=== PATIENT | female | born 1985 | race Caucasian/White ===

== ENCOUNTER 2016-04-30 18:24 | Emergency (ER) | payer BC ==
[2016-01-31 00:43] VITALS: BMI 22.8
[~2016-04-30 18:24] MED LIST: CEFPODOXIME PR200 MG; CEFPODOXIME PR200 MG PO; DOXYCYCLINE HY100 M2 PO; HYDROCODONE-APA1 TAB PO; IBUPROFEN600 MG PO; LAMICTAL200 MG PO; LATUDA40 MG PO; RELAFEN500 MG PO; ROBAXIN-750750 MG PO; ROBAXIN500 MG PO; SKELAXIN800 MG; SKELAXIN800 MG PO; TRI-SPRINTEC1 TAB PO; VITAMIN B-1000 MCG/M IM
[2016-04-30 20:04] LABS: APPEARANCE CLEAR (CLEAR); BILIRUBIN NEGATIVE (NEGATIVE); COLOR YELLOW (YELLOW); GLUCOSE NEGATIVE (NEGATIVE); KETONE NEGATIVE (NEGATIVE); LEUKOCYTE ESTERASE NEGATIVE (NEGATIVE); NITRITE NEGATIVE (NEGATIVE); PROTEIN NEGATIVE (NEGATIVE); SPECIFIC GRAVITY 1.015 (1.005-1.020); UROBILINOGEN NORMAL (NORMAL)
[2016-04-30 23:30] LABS: BASOPHILS 0.4 % (0.0-2.0); EOSINOPHILS 2.7 % (0-7); HEMATOCRIT 41.7 % (36.0-48.0); HEMOGLOBIN 13.9 g/dL (12-16); IMMATURE GRANULOCYTES 0.2 % (0-5); LYMPHOCYTES 26.7 % (15-50); MCH 28.7 pg (26.0-34.0); MCHC 33.3 g/dL (31.0-37.0); MEAN PLATELET VOLUME 8.8 fL (7.4-10.4); MONOCYTES 8.5 % (2-11); NEUTROPHILS 61.5 % (40-80); RBC 4.85 10x6/uL (4.00-5.40); RDW 12.3 % (11.5-14.5); WBC 10.2 10x3/uL (4.8-10.8)
[2016-04-30 23:39] LABS: PLATELET COUNT 358 10x3/uL (130-400)
[2016-04-30 23:41] LABS: HCG SERUM NEGATIVE (NEGATIVE)
[2016-04-30 23:47] LABS: ALBUMIN 4.2 g/dL (3.4-5.0); ALKALINE PHOSPHATASE 65 U/L (46-116); ALT (SGPT) 29 U/L (10-68); BILIRUBIN - TOTAL 0.56 mg/dL (0.2-1.3); CALC OSMOLALITY 270 mosm/kg (275-300); CALCIUM 9.9 mg/dL (8.5-10.1); CARBON DIOXIDE 28.3 mmol/L (21.0-32.0); CHLORIDE - SERUM 102 mmol/L (98-107); CREATININE - SERUM 0.7 mg/dL (0.6-1.3); GLUCOSE 77 mg/dL (74-106); POTASSIUM - SERUM 3.7 mmol/L (3.5-5.1); PROTEIN - SERUM 7.9 g/dL (6.4-8.2); SODIUM 137 mmol/L (136-145); UREA NITROGEN 7 mg/dL (7-18); eGFR NON AFRICAN AMERICAN > 90 mL/min (90-120)
== END 2016-05-01 01:23 | disposition home or self-care (01) ==
LOC: D.ER 18:24
PROVIDERS: Family Medicine; Physician Assistant
DX: R10.9 Unspecified abdominal pain (principal)

== ENCOUNTER → 2016-07-06 16:56 | Outpatient (CLI) | payer BC ==
[2016-01-31 00:43] VITALS: BMI 22.8
== END | disposition home or self-care (01) ==
LOC: D.CT 16:56
DX: R06.00 Dyspnea, unspecified (principal)

== ENCOUNTER → 2016-10-29 15:54 | Outpatient (CLI) | payer BC ==
[2016-01-31 00:43] VITALS: BMI 22.8
== END | disposition home or self-care (01) ==
LOC: D.US 15:54
DX: R10.9 Unspecified abdominal pain (principal)

== ENCOUNTER 2016-11-13 10:27 | Emergency (ER) | payer BC ==
[2016-01-31 00:43] VITALS: BMI 22.8
[2016-11-13 12:00] LABS: UDS - AMPHET POSITIVE QUAL (NEGATIVE); UDS - BARB NEGATIVE QUAL (NEGATIVE); UDS - BENZO NEGATIVE QUAL (NEGATIVE); UDS - COCAINE NEGATIVE QUAL (NEGATIVE); UDS - METH NEGATIVE QUAL (NEGATIVE); UDS - OPIATE NEGATIVE QUAL (NEGATIVE); UDS - PCP NEGATIVE QUAL (NEGATIVE); UDS - THC NEGATIVE QUAL (NEGATIVE)
[2016-11-13 12:14] LABS: APPEARANCE HAZY (CLEAR); BACTERIA MANY /hpf (NONE SEEN); BILIRUBIN NEGATIVE (NEGATIVE); COLOR YELLOW (YELLOW); GLUCOSE NEGATIVE (NEGATIVE); KETONE NEGATIVE (NEGATIVE); LEUKOCYTE ESTERASE 2+ (NEGATIVE); MUCUS <1+ /lpf (NONE SEEN); NITRITE NEGATIVE (NEGATIVE); PROTEIN NEGATIVE (NEGATIVE); RED CELLS - URINE 0-5 /hpf (0-5); SPECIFIC GRAVITY 1.015 (1.005-1.020); UROBILINOGEN NORMAL (NORMAL)
[2016-11-13 12:22] LABS: BASOPHILS 0.3 % (0-2); EOSINOPHILS 1.4 % (0-7); HEMATOCRIT 39.6 % (36.0-48.0); HEMOGLOBIN 13.2 g/dL (12-16); IMMATURE GRANULOCYTES 0.1 % (0-5); LYMPHOCYTES 21.4 % (15-50); MCH 28.5 pg (26.0-34.0); MCHC 33.3 g/dL (31.0-37.0); MCV 85.5 fL (80.0-100.0); MEAN PLATELET VOLUME 9.5 fL (7.4-10.4); MONOCYTES 7.4 % (2-11); NEUTROPHILS 69.4 % (40-80); RBC 4.63 10x6/uL (4.00-5.40); RDW 12.6 % (11.5-14.5); WBC 7.4 10x3/uL (4.8-10.8)
[2016-11-13 12:36] LABS: PLATELET COUNT 281 10x3/uL (130-400)
[2016-11-13 12:42] LABS: ALBUMIN 3.5 g/dL (3.4-5.0); ALKALINE PHOSPHATASE 71 U/L (46-116); ALT (SGPT) 26 U/L (10-68); BILIRUBIN - TOTAL 0.16 mg/dL (0.2-1.3); CALC OSMOLALITY 278 mosm/kg (275-300); CARBON DIOXIDE 24.5 mmol/L (21.0-32.0); CHLORIDE - SERUM 104 mmol/L (98-107); CREATININE - SERUM 0.6 mg/dL (0.6-1.3); GLUCOSE 98 mg/dL (74-106); PROTEIN - SERUM 6.9 g/dL (6.4-8.2); SODIUM 141 mmol/L (136-145); UREA NITROGEN 8 mg/dL (7-18); eGFR NON AFRICAN AMERICAN > 90 mL/min (90-120)
[2016-11-13 12:43] LABS: CREATINE KINASE 61 UL (21-215)
== END 2016-11-13 13:18 | disposition home or self-care (01) ==
LOC: D.ER 10:27
PROVIDERS: Nurse Practitioner Acute Care
DX: R56.9 Unspecified convulsions (principal); N39.0 Urinary tract infection, site not specified; F32.9 Major depressive disorder, single episode, unspecified; G47.00 Insomnia, unspecified

== ENCOUNTER 2017-02-18 21:40 | Emergency (ER) | payer BC ==
[2016-01-31 00:43] VITALS: BMI 22.8
== END 2017-02-19 00:55 | disposition home or self-care (01) ==
LOC: D.ER 21:40
DX: T78.40XA Allergy, unspecified, initial encounter (principal); X58.XXXA Exposure to other specified factors, initial encounter; R51 Headache

== ENCOUNTER 2017-02-25 11:06 | Emergency (ER) | payer BC ==
[2016-01-31 00:43] VITALS: BMI 22.8
== END 2017-02-25 12:50 | disposition home or self-care (01) ==
LOC: D.ER 11:06
DX: T78.3XXA Angioneurotic edema, initial encounter (principal); R51 Headache; F17.200 Nicotine dependence, unspecified, uncomplicated

== ENCOUNTER 2017-03-22 20:57 | Emergency (ER) | payer BC ==
[2016-01-31 00:43] VITALS: BMI 22.8
== END 2017-03-22 23:00 | disposition home or self-care (01) ==
LOC: D.ER 20:57
DX: T78.40XA Allergy, unspecified, initial encounter (principal); X58.XXXA Exposure to other specified factors, initial encounter; T78.3XXA Angioneurotic edema, initial encounter

== ENCOUNTER 2017-04-02 20:23 | Emergency (ER) | payer BC ==
[2016-01-31 00:43] VITALS: BMI 22.8
== END 2017-04-02 23:35 | disposition home or self-care (01) ==
LOC: D.ER 20:23
DX: T78.40XA Allergy, unspecified, initial encounter (principal)

== ENCOUNTER 2017-05-16 19:28 | Emergency (ER) | payer BC ==
[2016-01-31 00:43] VITALS: BMI 22.8
== END 2017-05-16 21:43 | disposition home or self-care (01) ==
LOC: D.ER 19:28
DX: T78.3XXA Angioneurotic edema, initial encounter (principal); T78.1XXA Other adverse food reactions, not elsewhere classified, initial encounter; X58.XXXA Exposure to other specified factors, initial encounter

== ENCOUNTER 2017-05-25 19:16 | Emergency (ER) | payer BC ==
[2016-01-31 00:43] VITALS: BMI 22.8
== END 2017-05-25 22:24 | disposition home or self-care (01) ==
LOC: D.ER 19:16
DX: J20.9 Acute bronchitis, unspecified (principal); J06.9 Acute upper respiratory infection, unspecified

== ENCOUNTER 2017-06-04 23:04 | Emergency (ER) | payer BC ==
[2016-01-31 00:43] VITALS: BMI 22.8
--- NOTE | ~2017-06-04 | HP ---
PATIENT: SYED DODGE MEDICAL RECORD: [id number] ACCOUNT: [id number] LOCATION:D.ER : 81 ADMISSION DATE: 06/04/17 HISTORY AND PHYSICAL EXAMINATION HISTORY OF PRESENT ILLNESS: She is a 32-year-old female who presented to the office today after ER followup. She had been in the ER the previous evening complaining of severe abdominal pain. She also had complained of abdominal pain, back pain, and burning with urination. We had diagnosed her with a UTI, E. Coli, and Staph epidermidis a week ago. She had been on antibiotics and actually had been feeling better up until yesterday when she states she started to have a fever and worsening pain. She also has a history of ovarian cyst. In the ER last night, the CT scan done was unremarkable except for a small amount of fluid in the right adnexa. Normal white count, normal CMP, UA had just a trace of blood. She, however, states the pain is 10/10, getting worse, complaining of headache. She states she has been unable to walk due to being so lightheaded and weak, was brought into the office by her today in a wheelchair. She states the temperature last night was 100.5. She is nauseated. HOME MEDICATIONS: Include Lamictal 200 mg daily, Latuda 40 mg daily, pantoprazole 20 mg b.i.d., ranitidine 150 mg b.i.d., Bactrim DS b.i.d., trazodone 50 mg q.h.s., and oral contraceptive. ALLERGIES: She has allergies to LEVAQUIN, which caused vomiting and REGLAN, which caused vomiting and convulsions. PAST MEDICAL HISTORY: She does carry with her past medical history of bipolar disorder. She had been diagnosed with flu type A 3 weeks ago, did undergo treatment for that. She has a history of some urticaria with angioedema in the past. FAMILY HISTORY: Noncontributory. SOCIAL HISTORY: She does not smoke, denies alcohol or drug use. She is . REVIEW OF SYSTEMS: CONSTITUTIONAL: Complained of low-grade temperature last night. She denies any visual changes or auditory changes. Does complain of headache. CARDIOVASCULAR: Denies any chest pains or palpitations. PULMONARY: Denies any cough or hemoptysis. GASTROINTESTINAL: She does complain of the abdominal pain, mostly right lower quadrant and right flank area. GENITOURINARY: She complains of some blood with wiping after urination and some burning with urination. NEUROLOGIC: She complains of headache, being lightheaded, dizzy. PHYSICAL EXAMINATION: VITAL SIGNS: Her pulse was 80, respiration of 18, temperature 98.6 here, blood pressure 120/80. HEENT: PERRLA, EOMI. Pharynx clear. NECK: Supple, no JVD. HEART: Had S1 and S2. No murmurs or rubs. LUNGS: Clear with no rhonchi, rales or wheezing. ABDOMEN: Soft. It was tender in the right lower quadrant, suprapubic area to HISTORY AND PHYSICAL [id number] DODGE,DESIRE J palpation. No rebound or guarding. EXTREMITIES: She had some right flank tenderness. No skin rash noted. NEUROLOGICALLY: She was weak and very anxious appearing. LABORATORY DATA: Urinalysis had trace of blood, no bacteria seen. ASSESSMENT AND PLAN: Abdominal pain with fever, recent UTI, nausea, lightheadedness, low back pain, flank pain, and right lower quadrant pain. 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 While she was here in the hospital, she did have an outpatient appointment with them set up for next week. We will panculture her again, ask ID to see in regards to the fever prior to starting any new antibiotics. Pain medicine, antiemetic medicine, IV fluids, and continued treatment based on further evaluation. TRANSINT:[id number] Voice Confirmation ID: [id number] DOCUMENT ID: [id number] RAÚL WELLS DO at 0645 CC: [id number] DICTATION DATE: 06/05/17 1227 TELECOMMUNICATIONS OPERATOR: 06/05/17 1246 DEP ER 06/05/17 [id number] [place] [address]
[2017-06-04 23:51] LABS: APPEARANCE CLEAR (CLEAR); BILIRUBIN NEGATIVE (NEGATIVE); COLOR STRAW (YELLOW); GLUCOSE NEGATIVE (NEGATIVE); KETONE NEGATIVE (NEGATIVE); NITRITE NEGATIVE (NEGATIVE); PROTEIN NEGATIVE (NEGATIVE); SPECIFIC GRAVITY 1.005 (1.005-1.020); UROBILINOGEN NORMAL (NORMAL)
[2017-06-04 23:52] LABS: BACTERIA FEW /hpf (NONE SEEN); EPITHELIAL CELLS 0-5 /hpf (0-5); RED CELLS - URINE 0-5 /hpf (0-5); WHITE CELLS - URINE 0-5 /hpf (0-5)
[2017-06-05 01:47] LABS: BASOPHILS 0.1 % (0-2); EOSINOPHILS 1.8 % (0-7); HEMATOCRIT 39.3 % (36.0-48.0); HEMOGLOBIN 12.8 g/dL (12-16); IMMATURE GRANULOCYTES 0.1 % (0-5); LYMPHOCYTES 29.1 % (15-50); MCH 28.8 pg (26.0-34.0); MCHC 32.6 g/dL (31.0-37.0); MCV 88.5 fL (80.0-100.0); MEAN PLATELET VOLUME 8.5 fL (7.4-10.4); MONOCYTES 8.5 % (2-11); NEUTROPHILS 60.4 % (40-80); PLATELET COUNT 292 10x3/uL (130-400); RBC 4.44 10x6/uL (4.00-5.40); RDW 12.5 % (11.5-14.5)
[2017-06-05 01:53] LABS: HCG URINE NEGATIVE (NEGATIVE)
[2017-06-05 02:00] LABS: ALBUMIN 3.7 g/dL (3.4-5.0); ALKALINE PHOSPHATASE 63 U/L (46-116); ALT (SGPT) 41 U/L (10-68); CALC OSMOLALITY 271 mosm/kg (275-300); CALCIUM 9.2 mg/dL (8.5-10.1); CHLORIDE - SERUM 101 mmol/L (98-107); CREATININE - SERUM 0.6 mg/dL (0.6-1.3); GLUCOSE 90 mg/dL (74-106); LIPASE 108 U/L (73-393); POTASSIUM - SERUM 3.9 mmol/L (3.5-5.1); PROTEIN - SERUM 6.8 g/dL (6.4-8.2); SODIUM 137 mmol/L (136-145); UREA NITROGEN 7 mg/dL (7-18); eGFR NON AFRICAN AMERICAN > 90 mL/min (90-120)
[2017-06-05] MEDS ORDERED: ZANTAC150 MG PO (19:20)
[2017-06-05] MEDS ORDERED: PROTONIX40 MG PO (19:21)
[2017-06-05] MEDS ORDERED: TRAZODONE HCL50 MG PO (19:22)
== END 2017-06-05 04:05 | disposition home or self-care (01) ==
LOC: D.ER 23:04
PROVIDERS: Emergency Medicine
DX: R10.9 Unspecified abdominal pain (principal)

== ENCOUNTER 2017-06-05 12:36 | Observation (INO) | payer BC ==
[~2017-06-05] VITALS: Ht 162.6 cm; Wt 73.9 kg
[2017-06-05 13:30] VITALS: BP 130/84
[2017-06-05 15:31] LABS: BASOPHILS 0.2 % (0-2); HEMATOCRIT 39.3 % (36.0-48.0); HEMOGLOBIN 12.8 g/dL (12-16); IMMATURE GRANULOCYTES 0.2 % (0-5); LYMPHOCYTES 28.5 % (15-50); MCH 28.6 pg (26.0-34.0); MCHC 32.6 g/dL (31.0-37.0); MCV 87.7 fL (80.0-100.0); MEAN PLATELET VOLUME 8.8 fL (7.4-10.4); MONOCYTES 8.7 % (2-11); NEUTROPHILS 60.4 % (40-80); PLATELET COUNT 264 10x3/uL (130-400); RBC 4.48 10x6/uL (4.00-5.40); RDW 12.6 % (11.5-14.5)
[2017-06-05 15:41] LABS: ALBUMIN 3.7 g/dL (3.4-5.0); ALKALINE PHOSPHATASE 58 U/L (46-116); ALT (SGPT) 49 U/L (10-68); AMYLASE - SERUM 49 U/L (25-115); BILIRUBIN - TOTAL 0.26 mg/dL (0.2-1.3); CALC OSMOLALITY 274 mosm/kg (275-300); CARBON DIOXIDE 29.4 mmol/L (21.0-32.0); CHLORIDE - SERUM 103 mmol/L (98-107); CREATININE - SERUM 0.5 mg/dL (0.6-1.3); GLUCOSE 84 mg/dL (74-106); LIPASE 97 U/L (73-393); POTASSIUM - SERUM 3.9 mmol/L (3.5-5.1); PROTEIN - SERUM 6.5 g/dL (6.4-8.2); SODIUM 139 mmol/L (136-145); UREA NITROGEN 6 mg/dL (7-18); eGFR NON AFRICAN AMERICAN > 90 mL/min (90-120)
[2017-06-05 15:49] VITALS: BP 137/83
[2017-06-05 18:19] VITALS: BMI 28.0
[2017-06-05 19:15] LABS: APPEARANCE CLEAR (CLEAR); BILIRUBIN NEGATIVE (NEGATIVE); COLOR YELLOW (YELLOW); GLUCOSE NEGATIVE (NEGATIVE); KETONE NEGATIVE (NEGATIVE); NITRITE NEGATIVE (NEGATIVE); PROTEIN NEGATIVE (NEGATIVE); UROBILINOGEN NORMAL (NORMAL)
[2017-06-05] MEDS ORDERED: ZANTAC150 MG PO (19:20)
[2017-06-05] MEDS ORDERED: PROTONIX40 MG PO (19:21)
[2017-06-05] MEDS ORDERED: TRAZODONE HCL50 MG PO (19:22)
[2017-06-05 20:00] VITALS: BP 120/74
[2017-06-06 04:00] VITALS: BP 122/85
[2017-06-06 04:49] LABS: BASOPHILS 0.2 % (0-2); EOSINOPHILS 1.8 % (0-7); HEMATOCRIT 37.6 % (36.0-48.0); IMMATURE GRANULOCYTES 0.2 % (0-5); LYMPHOCYTES 31.7 % (15-50); MCH 28.3 pg (26.0-34.0); MCHC 31.9 g/dL (31.0-37.0); MCV 88.7 fL (80.0-100.0); MONOCYTES 11.8 % (2-11); NEUTROPHILS 54.3 % (40-80); PLATELET COUNT 269 10x3/uL (130-400); RBC 4.24 10x6/uL (4.00-5.40); RDW 12.7 % (11.5-14.5); WBC 5.4 10x3/uL (4.8-10.8)
[2017-06-06 05:18] LABS: ALBUMIN 3.1 g/dL (3.4-5.0); ALKALINE PHOSPHATASE 53 U/L (46-116); ALT (SGPT) 45 U/L (10-68); BILIRUBIN - TOTAL 0.29 mg/dL (0.2-1.3); CALC OSMOLALITY 275 mosm/kg (275-300); CALCIUM 8.7 mg/dL (8.5-10.1); CARBON DIOXIDE 27.4 mmol/L (21.0-32.0); CHLORIDE - SERUM 104 mmol/L (98-107); CREATININE - SERUM 0.6 mg/dL (0.6-1.3); GLUCOSE 91 mg/dL (74-106); POTASSIUM - SERUM 4.2 mmol/L (3.5-5.1); PROTEIN - SERUM 5.9 g/dL (6.4-8.2); SODIUM 139 mmol/L (136-145); UREA NITROGEN 7 mg/dL (7-18); eGFR NON AFRICAN AMERICAN > 90 mL/min (90-120)
[2017-06-06 08:12] VITALS: BP 113/64
[2017-06-06 10:49] VITALS: Ht 162.6 cm; Wt 73.9 kg
[2017-06-06 12:24] VITALS: BP 132/78
[2017-06-06 15:57] VITALS: BP 118/63
[2017-06-06 20:00] VITALS: BP 118/76
[2017-06-07] VITALS: BP 121/81
[2017-06-07 03:08] LABS: BASOPHILS 0.3 % (0-2); EOSINOPHILS 1.9 % (0-7); HEMATOCRIT 36.2 % (36.0-48.0); HEMOGLOBIN 11.7 g/dL (12-16); IMMATURE GRANULOCYTES 0.2 % (0-5); LYMPHOCYTES 28.8 % (15-50); MCH 28.4 pg (26.0-34.0); MCHC 32.3 g/dL (31.0-37.0); MCV 87.9 fL (80.0-100.0); MEAN PLATELET VOLUME 8.7 fL (7.4-10.4); MONOCYTES 9.2 % (2-11); NEUTROPHILS 59.6 % (40-80); PLATELET COUNT 259 10x3/uL (130-400); RBC 4.12 10x6/uL (4.00-5.40); RDW 12.3 % (11.5-14.5); WBC 6.4 10x3/uL (4.8-10.8)
[2017-06-07 03:36] LABS: ALBUMIN 3.1 g/dL (3.4-5.0); ALKALINE PHOSPHATASE 71 U/L (46-116); ALT (SGPT) 44 U/L (10-68); BILIRUBIN - TOTAL 0.14 mg/dL (0.2-1.3); CALC OSMOLALITY 277 mosm/kg (275-300); CALCIUM 8.4 mg/dL (8.5-10.1); CHLORIDE - SERUM 105 mmol/L (98-107); CREATININE - SERUM 0.6 mg/dL (0.6-1.3); GLUCOSE 111 mg/dL (74-106); POTASSIUM - SERUM 3.9 mmol/L (3.5-5.1); PROTEIN - SERUM 6.1 g/dL (6.4-8.2); SODIUM 140 mmol/L (136-145); UREA NITROGEN 6 mg/dL (7-18); eGFR NON AFRICAN AMERICAN > 90 mL/min (90-120)
[2017-06-07 04:00] VITALS: BP 132/79
[2017-06-07] MEDS ORDERED: NYSTATIN ORAL SU5 ML PO (06:46)
[2017-06-07 09:33] VITALS: BP 120/72
== END 2017-06-07 10:16 | disposition home or self-care (01) ==
LOC: D.MS 12:36 → D.SDCHOLD 12:36 → OBSVTIME 12:38 → D.MS 13:14
PROVIDERS: Family Medicine; Student in an Organized Health Care Education/Training Program
DX: R10.9 Unspecified abdominal pain (principal); R50.9 Fever, unspecified; B37.9 Candidiasis, unspecified; F45.41 Pain disorder exclusively related to psychological factors; F31.81 Bipolar II disorder

== ENCOUNTER 2017-08-30 12:31 | Emergency (ER) | payer BC ==
[2017-06-06 10:49] VITALS: BMI 27.9
[~2017-08-30 12:31] MED LIST changes: +NYSTATIN ORAL SU5 ML PO; +PROTONIX40 MG PO; +TRAZODONE HCL50 MG PO; +ZANTAC150 MG PO
[2017-08-30 13:24] LABS: APPEARANCE CLEAR (CLEAR); BILIRUBIN NEGATIVE (NEGATIVE); COLOR YELLOW (YELLOW); GLUCOSE NEGATIVE (NEGATIVE); KETONE NEGATIVE (NEGATIVE); NITRITE NEGATIVE (NEGATIVE); PROTEIN NEGATIVE (NEGATIVE); UROBILINOGEN NORMAL (NORMAL)
[2017-08-30 14:00] LABS: BASOPHILS 0.2 % (0-2); EOSINOPHILS 0.9 % (0-7); HEMATOCRIT 36.8 % (36.0-48.0); HEMOGLOBIN 12.4 g/dL (12-16); IMMATURE GRANULOCYTES 0.2 % (0-5); LYMPHOCYTES 28.7 % (15-50); MCH 28.6 pg (26.0-34.0); MCHC 33.7 g/dL (31.0-37.0); MCV 84.8 fL (80.0-100.0); MONOCYTES 8.7 % (2-11); NEUTROPHILS 61.3 % (40-80); PLATELET COUNT 287 10x3/uL (130-400); RBC 4.34 10x6/uL (4.00-5.40); RDW 11.8 % (11.5-14.5); WBC 5.8 10x3/uL (4.8-10.8)
== END 2017-08-30 15:30 | disposition home or self-care (01) ==
LOC: D.ER 12:31
PROVIDERS: Emergency Medicine
DX: M54.5 Low back pain (principal)

== ENCOUNTER 2017-09-05 11:04 | Day surgery (SDC) | payer BC ==
[~2017-09-05] VITALS: Ht 162.6 cm; Wt 71.4 kg
--- NOTE | ~2017-09-05 | OP ---
PATIENT NAME: SYED DODGE MEDICAL RECORD: [id number] :81 LOCATION:[facility] ADMISSION DATE: SURGEON: BRENDON WALSH MD DATE OF OPERATION: 09/05/2017 PREOPERATIVE DIAGNOSIS: Pelvic pain. POSTOPERATIVE DIAGNOSES: 1. Pelvic pain. 2. Endometriosis. PROCEDURES: 1. Diagnostic laparoscopy. 2. Fulguration of endometriosis. SURGEON: Brendon Walsh MD ANESTHESIOLOGIST: Vamshi Orozco MD ANESTHESIA: General anesthetic with endotracheal intubation. FINDINGS: Uterus and tubes were unremarkable. Active endometriosis was noted on the bladder serosa as well as an active lesion on the left ovary. What was visualized of the abdominal anatomy and the right ovary are all unremarkable. SPECIMENS: None. SPECIMEN DISPOSITION: Nonapplicable. ESTIMATED BLOOD LOSS: Less than or equal to 50 cc. FLUIDS: 800 cc lactated Ringer's. URINE OUTPUT: Quantity sufficient void prior to the procedure. COMPLICATIONS: None. DRAINS: None. INDICATIONS: The patient is a 32-year-old female who presented today to clinic for preoperative evaluation for planned procedure tomorrow. The patient was in intense lower pelvic and abdominal pain. The patient was admitted for subacute pelvic pain and immediately proceeded to diagnostic laparoscopy. DESCRIPTION OF PROCEDURE: After informed consent was assured, the patient was taken to the operating room where anesthetic was obtained. The patient was prepped and draped in the usual sterile fashion. An incision was made at the umbilicus to accommodate a 5-mm trocar, which was inserted without difficulty and pneumoperitoneum developed. Accessory ports were placed 2 fingerbreadths above the symphysis. Through this port, a blunt probe was used to sweep the bowel free of the pelvis and with the patient in steep Trendelenburg position, the cul-de-sac, uterus, tubes and ovaries are visualized. The above findings were encountered. A monopolar bovied device is now inserted and the endometriosis of the left ovary was fulgurated. Assessment of the pelvis now being complete, the accessory trocars were removed under direct visualization OPERATIVE REPORT [id number] SYED DODGE and the pneumoperitoneum released. Primary trocar was now removed and the skin sites closed with a subcuticular stitch. Dermabond was applied. Sponge, lap, and needle counts correct times 2. The patient was taken to the recovery area in stable condition. TRANSINT:[id number] Voice Confirmation ID: [id number] DOCUMENT ID: [id number] BRENDON WALSH MD at 1326 CC: [id number] DICTATION DATE: 09/05/17 1352 WORKDAY SENIOR ASSOCIATE: 09/05/17 1753 [facility] 09/05/17 [facility] [address] [id number]
[2017-09-05 11:54] VITALS: BP 140/80; Ht 162.6 cm; Wt 71.4 kg
[2017-09-05 12:07] LABS: BASOPHILS 0.1 % (0-2); EOSINOPHILS 0.7 % (0-7); HEMATOCRIT 35.9 % (36.0-48.0); HEMOGLOBIN 12.1 g/dL (12-16); IMMATURE GRANULOCYTES 0.1 % (0-5); LYMPHOCYTES 21.8 % (15-50); MCH 28.3 pg (26.0-34.0); MCHC 33.7 g/dL (31.0-37.0); MCV 83.9 fL (80.0-100.0); MEAN PLATELET VOLUME 9.2 fL (7.4-10.4); MONOCYTES 4.8 % (2-11); NEUTROPHILS 72.5 % (40-80); PLATELET COUNT 266 10x3/uL (130-400); RBC 4.28 10x6/uL (4.00-5.40); RDW 12.2 % (11.5-14.5); WBC 7.6 10x3/uL (4.8-10.8)
[2017-09-05 13:21] LABS: HCG SERUM NEGATIVE (NEGATIVE)
[2017-09-05 14:38] VITALS: BP 124/71
[2017-09-05] MEDS ORDERED: OXYCONTIN10 MG PO (15:07)
[2017-09-05] MEDS ORDERED: MOBIC7.5 MG PO (15:09)
[2017-09-05] MEDS ORDERED: ACETAMINOPHEN500 M1 PO (15:10)
== END 2017-09-05 16:19 | disposition home or self-care (01) ==
LOC: D.LDO 11:04 → D.PAN 11:04 → D.LDO 16:19 → D.PAN 09-06 08:00 → D.OPS 09-06 12:30
PROVIDERS: Anesthesiology; Obstetrics & Gynecology
DX: N80.9 Endometriosis, unspecified (principal); R10.2 Pelvic and perineal pain; K21.9 Gastro-esophageal reflux disease without esophagitis; N39.0 Urinary tract infection, site not specified; Z01.812 Encounter for preprocedural laboratory examination

== ENCOUNTER 2017-10-02 15:38 | Emergency (ER) | payer BC ==
[~2017-10-02] VITALS: Ht 162.6 cm; Wt 71.2 kg
[~2017-10-02 15:38] MED LIST changes: +ACETAMINOPHEN500 M1 PO; +MOBIC7.5 MG PO; +OXYCONTIN10 MG PO
[2017-10-02 16:17] VITALS: Ht 162.6 cm; Wt 71.2 kg
[2017-10-02] MEDS ORDERED: TYLENOL W/CODEI1 TAB PO (17:28)
[2017-10-02] MEDS ORDERED: BACITRACIN15 GM TP (17:28)
[2017-10-02 18:00] VITALS: BP 134/84
[2017-10-16] MEDS ORDERED: NORCO 7.5/325 T1 TA1 PO (16:17)
[2017-10-16] MEDS ORDERED: PERCOCET 5-3251 TAB PO (16:18)
[2017-10-17] MEDS ORDERED: DOLOPHINE HCL5 MG PO (19:03)
== END 2017-10-02 18:00 | disposition home or self-care (01) ==
LOC: D.ER 15:38
DX: S61.211A Laceration without foreign body of left index finger without damage to nail, initial encounter (principal); W26.0XXA Contact with knife, initial encounter; Y93.89 Activity, other specified; Y92.019 Unspecified place in single-family (private) house as the place of occurrence of the external cause

== ENCOUNTER 2017-12-03 18:04 | Emergency (ER) | payer BC ==
[~2017-12-03] VITALS: Ht 154.9 cm; Wt 70.5 kg
[~2017-12-03 18:04] MED LIST changes: +BACITRACIN15 GM TP; +DOLOPHINE HCL5 MG PO; +NORCO 7.5/325 T1 TA1 PO; +PERCOCET 5-3251 TAB PO; +TYLENOL W/CODEI1 TAB PO
[2017-12-03 18:15] VITALS: Ht 154.9 cm; Wt 70.5 kg
[2017-12-03] MEDS ORDERED: LUPRON IM (18:18)
[2017-12-03] MEDS ORDERED: [UNRECOGNIZED DRUG - REMARK] (18:18)
[2017-12-03 18:50] LABS: APPEARANCE CLEAR (CLEAR); COLOR YELLOW (YELLOW); GLUCOSE NEGATIVE (NEGATIVE); KETONE NEGATIVE (NEGATIVE); NITRITE NEGATIVE (NEGATIVE); PROTEIN NEGATIVE (NEGATIVE); SPECIFIC GRAVITY 1.015 (1.005-1.020); UROBILINOGEN NORMAL (NORMAL)
[2017-12-03 18:51] LABS: BACTERIA MANY /hpf (NONE SEEN); BILIRUBIN NEGATIVE (NEGATIVE); EPITHELIAL CELLS 0-5 /hpf (0-5); RED CELLS - URINE OCC /hpf (0-5); WHITE CELLS - URINE 0-5 /hpf (0-5)
[2017-12-03 19:04] LABS: BASOPHILS 0.2 % (0-2); EOSINOPHILS 2.5 % (0-7); HEMATOCRIT 38.3 % (36.0-48.0); HEMOGLOBIN 12.9 g/dL (12-16); IMMATURE GRANULOCYTES 0.2 % (0-5); MCH 28.3 pg (26.0-34.0); MCHC 33.7 g/dL (31.0-37.0); MEAN PLATELET VOLUME 9.2 fL (7.4-10.4); MONOCYTES 8.2 % (2-11); NEUTROPHILS 65.9 % (40-80); PLATELET COUNT 295 10x3/uL (130-400); RBC 4.56 10x6/uL (4.00-5.40); RDW 12.6 % (11.5-14.5); WBC 8.5 10x3/uL (4.8-10.8)
[2017-12-03 19:24] LABS: ALBUMIN 3.8 g/dL (3.4-5.0); ALKALINE PHOSPHATASE 102 U/L (46-116); ALT (SGPT) 22 U/L (10-68); CALC OSMOLALITY 275 mosm/kg (275-300); CALCIUM 9.1 mg/dL (8.5-10.1); CARBON DIOXIDE 29.3 mmol/L (21.0-32.0); CHLORIDE - SERUM 103 mmol/L (98-107); CREATININE - SERUM 0.7 mg/dL (0.6-1.3); GLUCOSE 115 mg/dL (74-106); POTASSIUM - SERUM 3.5 mmol/L (3.5-5.1); PROTEIN - SERUM 7.4 g/dL (6.4-8.2); SODIUM 138 mmol/L (136-145); UREA NITROGEN 10 mg/dL (7-18); eGFR NON AFRICAN AMERICAN > 90 mL/min (90-120)
[2017-12-03 19:27] LABS: HCG URINE NEGATIVE (NEGATIVE)
[2017-12-03 19:29] LABS: AMYLASE - SERUM 57 U/L (25-115); LIPASE 183 U/L (73-393)
[2017-12-03 19:43] LABS: TROPONIN-I < 0.017 ng/mL (0.000-0.060)
[2017-12-03 23:57] VITALS: BP 117/84
== END 2017-12-03 23:57 | disposition home or self-care (01) ==
LOC: D.ER 18:04
PROVIDERS: Family Medicine
DX: M54.16 Radiculopathy, lumbar region (principal); N83.209 Unspecified ovarian cyst, unspecified side; R10.2 Pelvic and perineal pain; Z79.818 Long term (current) use of other agents affecting estrogen receptors and estrogen levels; N80.9 Endometriosis, unspecified

== ENCOUNTER 2018-05-27 16:01 | Emergency (ER) | payer BC ==
[~2018-05-27] VITALS: Ht 154.9 cm; Wt 77.7 kg
[~2018-05-27 16:01] MED LIST changes: +LUPRON IM; +[UNRECOGNIZED DRUG - REMARK]
[2018-05-27 16:23] VITALS: Ht 154.9 cm; Wt 77.7 kg
[2018-05-27 17:26] LABS: BASOPHILS 0.1 % (0-2); EOSINOPHILS 1.4 % (0-7); HEMATOCRIT 36.6 % (36.0-48.0); HEMOGLOBIN 12.2 g/dL (12-16); IMMATURE GRANULOCYTES 0.1 % (0-5); LYMPHOCYTES 23.8 % (15-50); MCH 27.9 pg (26.0-34.0); MCHC 33.3 g/dL (31.0-37.0); MCV 83.6 fL (80.0-100.0); MEAN PLATELET VOLUME 8.8 fL (7.4-10.4); MONOCYTES 8.3 % (2-11); NEUTROPHILS 66.3 % (40-80); PLATELET COUNT 250 10x3/uL (130-400); RBC 4.38 10x6/uL (4.00-5.40); RDW 12.4 % (11.5-14.5); WBC 9.2 10x3/uL (4.8-10.8)
[2018-05-27 17:40] LABS: ALBUMIN 3.8 g/dL (3.4-5.0); ALKALINE PHOSPHATASE 78 U/L (46-116); ALT (SGPT) 37 U/L (10-68); BILIRUBIN - TOTAL 0.21 mg/dL (0.2-1.3); CALC OSMOLALITY 272 mosm/kg (275-300); CALCIUM 9.1 mg/dL (8.5-10.1); CARBON DIOXIDE 26.8 mmol/L (21.0-32.0); CHLORIDE - SERUM 99 mmol/L (98-107); CREATININE - SERUM 0.9 mg/dL (0.6-1.3); GLUCOSE 85 mg/dL (74-106); POTASSIUM - SERUM 3.8 mmol/L (3.5-5.1); PROTEIN - SERUM 7.4 g/dL (6.4-8.2); SODIUM 137 mmol/L (136-145); UREA NITROGEN 13 mg/dL (7-18); eGFR NON AFRICAN AMERICAN 75 mL/min (90-120)
[2018-05-27 18:02] LABS: APPEARANCE CLEAR (CLEAR); BILIRUBIN NEGATIVE (NEGATIVE); COLOR YELLOW (YELLOW); GLUCOSE NEGATIVE (NEGATIVE); KETONE NEGATIVE (NEGATIVE); NITRITE NEGATIVE (NEGATIVE); PROTEIN NEGATIVE (NEGATIVE); UROBILINOGEN NORMAL (NORMAL)
[2018-05-27 18:03] LABS: BACTERIA FEW /hpf (NONE SEEN); RED CELLS - URINE OCC /hpf (0-5); WHITE CELLS - URINE OCC /hpf (0-5)
[2018-05-27] MEDS ORDERED: TORADOL10 MG PO (18:44)
[2018-05-27] MEDS ORDERED: ZOFRAN ODT4 MG/UDTAB PO (18:44)
[2018-05-27 21:12] VITALS: BP 122/79
== END 2018-05-27 21:12 | disposition home or self-care (01) ==
LOC: D.ER 16:01
PROVIDERS: Emergency Medicine
DX: R10.9 Unspecified abdominal pain (principal); Z87.440 Personal history of urinary (tract) infections

== ENCOUNTER 2018-06-25 19:35 | Emergency (ER) | payer BC ==
[~2018-06-25] VITALS: Ht 154.9 cm; Wt 81.8 kg
[~2018-06-25 19:35] MED LIST changes: +TORADOL10 MG PO; +ZOFRAN ODT4 MG/UDTAB PO
[2018-06-25 19:39] VITALS: Ht 154.9 cm; Wt 81.8 kg
[2018-06-25] MEDS ORDERED: HYDROCODON-ACE1 EA10 PO (19:42)
[2018-06-25] MEDS ORDERED: BENADRYL50 MG PO (21:02)
[2018-06-25] MEDS ORDERED: MACROBID100 MG PO (21:28)
[2018-06-25] MEDS ORDERED: EPIPEN 2-P0.3 MG/0.3 IM (21:28)
[2018-06-25 21:56] VITALS: BP 169/94
== END 2018-06-25 22:02 | disposition home or self-care (01) ==
LOC: D.ER 19:35
DX: T37.0X5A Adverse effect of sulfonamides, initial encounter (principal); Y92.019 Unspecified place in single-family (private) house as the place of occurrence of the external cause

== ENCOUNTER 2019-07-19 14:20 | Emergency (ER) | payer OTHER ==
[~2019-07-19] VITALS: Ht 154.9 cm; Wt 86.4 kg
[~2019-07-19 14:20] MED LIST changes: +BENADRYL50 MG PO; +EPIPEN 2-P0.3 MG/0.3 IM; +HYDROCODON-ACE1 EA10 PO; +MACROBID100 MG PO
[2019-07-19 15:37] VITALS: Ht 154.9 cm; Wt 86.4 kg
[2019-07-19 16:24] LABS: BILIRUBIN NEGATIVE (NEGATIVE); GLUCOSE NEGATIVE (NEGATIVE); KETONE NEGATIVE (NEGATIVE); NITRITE NEGATIVE (NEGATIVE); UROBILINOGEN NORMAL (NORMAL)
[2019-07-19 19:40] LABS: BASOPHILS 0.2 % (0-2); HEMOGLOBIN 13.3 g/dL (12-16); IMMATURE GRANULOCYTES 0.1 % (0-5); LYMPHOCYTES 21.8 % (15-50); MCH 28.5 pg (26.0-34.0); MCHC 32.4 g/dL (31.0-37.0); MEAN PLATELET VOLUME 8.6 fL (7.4-10.4); MONOCYTES 6.9 % (2-11); PLATELET COUNT 253 10x3/uL (130-400); RBC 4.66 10x6/uL (4.00-5.40); RDW 12.9 % (11.5-14.5); WBC 9.4 10x3/uL (4.8-10.8)
[2019-07-19 20:12] LABS: ALKALINE PHOSPHATASE 93 U/L (30-120); ALT (SGPT) 69 U/L (10-68); BILIRUBIN - TOTAL 0.24 mg/dL (0.2-1.3); CALCIUM 9.1 mg/dL (8.5-10.1); CARBON DIOXIDE 27.5 mmol/L (21.0-32.0); CKMB 0.1 U/L (0.0-3.6); CREATINE KINASE 51 UL (21-215); CREATININE - SERUM 0.7 mg/dL (0.6-1.3); FERRITIN 30 ng/mL (3-244); GLUCOSE 93 mg/dL (74-106); PROTEIN - SERUM 6.6 g/dL (6.4-8.2); UREA NITROGEN 6 mg/dL (7-18); eGFR NON AFRICAN AMERICAN > 90 mL/min (90-120)
[2019-07-19 20:28] LABS: ALBUMIN 3.8 g/dL (3.4-5.0); CALC OSMOLALITY 282 mosm/kg (275-300); CHLORIDE - SERUM 106 mmol/L (98-107); POTASSIUM - SERUM 4.3 mmol/L (3.5-5.1); SODIUM 143 mmol/L (136-145)
[2019-07-19 20:35] LABS: TROPONIN-I < 0.017 ng/mL (0.000-0.060)
[2019-07-19] MEDS ORDERED: ZOFRAN4 MG PO (22:41)
[2019-07-19 23:56] VITALS: BP 141/101
== END 2019-07-19 23:56 | disposition home or self-care (01) ==
LOC: D.ER 14:20
PROVIDERS: Family Medicine
DX: G43.909 Migraine, unspecified, not intractable, without status migrainosus (principal); R05 Cough; R07.9 Chest pain, unspecified; R50.9 Fever, unspecified; Z20.828 Contact with and (suspected) exposure to other viral communicable diseases

== ENCOUNTER 2019-07-22 17:24 | Emergency (ER) | payer OTHER ==
[~2019-07-22] VITALS: Ht 154.9 cm; Wt 85.5 kg
[~2019-07-22 17:24] MED LIST changes: +ZOFRAN4 MG PO
[2019-07-22 17:34] VITALS: BP 143/88; Ht 154.9 cm; Wt 85.5 kg
== END 2019-07-22 18:49 | disposition home or self-care (01) ==
LOC: D.ER 17:24
DX: R51 Headache (principal); M54.2 Cervicalgia; R53.1 Weakness

== ENCOUNTER 2020-02-04 16:00 | Emergency (ER) | payer OTHER ==
[~2020-02-04] VITALS: Ht 154.9 cm; Wt 90.9 kg
[2020-02-04 16:24] VITALS: Ht 154.9 cm; Wt 90.9 kg
[2020-02-04 18:55] LABS: BASOPHILS 0.5 % (0-2); EOSINOPHILS 1.8 % (0-7); HEMATOCRIT 39.9 % (36.0-48.0); IMMATURE GRANULOCYTES 0.2 % (0-5); LYMPHOCYTES 34.7 % (15-50); MCH 28.7 pg (26.0-34.0); MCHC 32.6 g/dL (31.0-37.0); MCV 88.1 fL (80.0-100.0); MEAN PLATELET VOLUME 8.9 fL (7.4-10.4); MONOCYTES 9.2 % (2-11); NEUTROPHILS 53.6 % (40-80); PLATELET COUNT 281 10x3/uL (130-400); RBC 4.53 10x6/uL (4.00-5.40); RDW 12.8 % (11.5-14.5); WBC 5.5 10x3/uL (4.8-10.8)
[2020-02-04 19:06] LABS: CALC OSMOLALITY 279 mosm/kg (275-300); CALCIUM 9.4 mg/dL (8.5-10.1); CHLORIDE - SERUM 103 mmol/L (98-107); CREATININE - SERUM 1.1 mg/dL (0.6-1.3); GLUCOSE 101 mg/dL (74-106); POTASSIUM - SERUM 3.9 mmol/L (3.5-5.1); SODIUM 140 mmol/L (136-145); UREA NITROGEN 16 mg/dL (7-18); eGFR NON AFRICAN AMERICAN 59 mL/min (90-120)
[2020-02-04 19:07] LABS: APTT 25.5 SECONDS (22.8-39.4); INR 0.94 (0.85-1.17); PROTIME 12.5 SECONDS (11.6-15.0)
[2020-02-04 19:08] LABS: D-DIMER-QUANTITATIVE < 0.27 ug/mLFEU (0.20-0.54)
[2020-02-04 19:18] LABS: HCG SERUM NEGATIVE (NEGATIVE)
[2020-02-04 19:21] LABS: ALKALINE PHOSPHATASE 93 U/L (30-120); ALT (SGPT) 257 U/L (10-68); BILIRUBIN - TOTAL 0.21 mg/dL (0.2-1.3); CKMB 0.4 U/L (0.0-3.6); CREATINE KINASE 91 UL (21-215); PROTEIN - SERUM 7.1 g/dL (6.4-8.2); TROPONIN-I < 0.017 ng/mL (0.000-0.060)
[2020-02-04 21:01] VITALS: BP 120/78
== END 2020-02-04 20:57 | disposition home or self-care (01) ==
LOC: D.ER 16:00
PROVIDERS: Emergency Medicine; Family Medicine
DX: R07.9 Chest pain, unspecified (principal)